=== PATIENT | female | born 1975 | race African-American/Black ===

== ENCOUNTER → 2018-04-28 | Day surgery (SDC) | payer SELFPAY ==
[~2018-04-28] VITALS: Ht 157.5 cm; Wt 78.0 kg
[~2018-04-28] MED LIST: CAT'S CLAW500 MG PO; GINKGO BILOBA120 M1 PO; HAIR, SKIN & N1 EACH PO; PERCOCET 5-3251 EACH PO; VITAMIN C500 M8 PO; [UNRECOGNIZED DRUG - OTHER] PO; [UNRECOGNIZED DRUG - OTHER] PO; [UNRECOGNIZED DRUG - OTHER] PO
--- NOTE | 2018-04-28 10:28 | Operative Report ---
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 We talked about complete abdominoplasty with plication of the diastases recti as well as limited liposuction of the lateral waist. We talked about the additional risk by adding liposuction to the procedure. She was given a SPS informed consent which she has returned signed and has no questions regarding. She was marked in the standing position with the use of a tape measure. She was shown the areas that would be treated in those that would not. She then and signed informed consent. She was taken to the operating placed supine on the table. Venodyne boots were placed and then general anesthesia was established intravenous antibiotics given. The abdomen was prepped and draped in usual sterile fashion. The umbilicus was freed from the abdominal flap in the upper and lower markings were deepened. The flap was removed. Central elevation was done up to the xiphoid to perform a 2 layer nonabsorbable closure of the diastases from xiphoid to pubis. She was then put in the semi-wang's position and a 3 layer closure of all wounds was carried out over drain. End dictation
== END ==
LOC: SDA 03:16 → UNDOADMIN 03:16 → EDSTATUS 07:00 → STS 07:05
DX: Z41.1 Encounter for cosmetic surgery (principal); E65 Localized adiposity; J45.909 Unspecified asthma, uncomplicated
CPT/HCPCS: 81025; J0171; J0690; J2001; J2250; J3490; Q9968